=== PATIENT | male | born 1975 | race Caucasian/White ===

== ENCOUNTER 2019-08-21 11:35 | Emergency (ER) | payer OTHER ==
[2019-08-21] MEDS ORDERED: Ondansetron 4 MG/2 ML SDV IVPUSH ONE (12:54)
[2019-08-21] MEDS ORDERED: fentaNYL 100 MCG/2 ML SDV IVPUSH ONE (12:54)
--- NOTE | 2019-08-21 12:54 | EDM.PDOC ---
ED HPI GENERAL MEDICAL PROBLEM - General Chief Complaint: Abdominal Pain Stated Complaint: R SIDE ABD PAIN Time Seen by Provider: 08/21/19 12:46 - History of Present Illness INITIAL COMMENTS - FREE TEXT/NARRATIVE: 44-year-old male presents emergency room with right-sided abdominal pain. this pain started around 8:30 this morning. He's had a little bit of nausea with it no vomiting. The pain started out in his upper back and now is in his lower right abdomen radiating into his groin. Patient does not have history kidney stones he still has his appendix and gallbladder. He's not having fevers or chills. Right Abdominal Pain Score (Numeric/FACES): 8 - Related Data Allergies Allergy/AdvReac Type Severity Reaction Status Date / Time No Known Allergies Allergy Verified 08/21/19 11:47 Home Meds: Home Meds Acetaminophen/HYDROcodone [Gwinner 325-5 MG] 1 - 2 tab PO Q6H PRN #20 tablet 08/21 [Rx] Escitalopram [Lexapro] 20 mg PO BEDTIME 08/21/19 [History] Ondansetron [Zofran ODT] 4 - 8 mg PO Q6H PRN #12 tab.dis 08/21/19 [Rx] Tamsulosin HCl [Flomax] 0.4 mg PO Q24H #7 cap.er.24h 08/21/19 [Rx] Topiramate [Topamax] 200 mg PO BEDTIME 08/21/19 [History] Past Medical History - Past Health History Medical/Surgical History: Denies Medical/Surgical History Social & Family History - Tobacco Use Smoking Status *Q: Current Every Day Smoker Years of Tobacco use: 10 Packs/Tins Daily: 1 - Caffeine Use Caffeine Use: Reports: Coffee, Energy Drinks - Recreational Drug Use Recreational Drug Use: No ED ROS GENERAL - Review of Systems Review Of Systems: See Below Constitutional: Reports: No Symptoms HEENT: Reports: No Symptoms Respiratory: Reports: No Symptoms Cardiovascular: Reports: No Symptoms GI/Abdominal: Reports: Abdominal Pain, Nausea. Denies: Constipation, Diarrhea, Distension, Vomiting ED EXAM, GI/ABD - Physical Exam Exam: See Below Exam Limited By: No Limitations General Appearance: Alert, Moderate Distress (From the pain) Head: Atraumatic, Normocephalic Neck: Normal Inspection, Supple, Non-Tender, Full Range of Motion Respiratory/Chest: No Respiratory Distress, Lungs Clear, Normal Breath Sounds, No Accessory Muscle Use, Chest Non-Tender Cardiovascular: Normal Peripheral Pulses, Regular Rate, Rhythm, No Edema, No Gallop, No JVD, No Murmur, No Rub GI/Abdominal Exam: Normal Bowel Sounds, Soft, Tender (Some tenderness right side of his abdomen this is not worsened with palpation no rigidity no rebound no guarding). No: Non-Tender Back Exam: Normal Inspection. No: CVA Tenderness (L), CVA Tenderness (R) Neurological: Alert, Oriented, Normal Cognition Course - Vital Signs Last Recorded V/S: Last Vital Signs Temp 36.4 C 08/21/19 11:46 Pulse 48 L 08/21/19 11:46 Resp 15 08/21/19 11:46 BP 133/62 08/21/19 11:46 Pulse Ox 100 08/21/19 11:46 - Orders/Labs/Meds Orders: Active Orders 24 hr Category Date Time Status Lactated Ringers [Ringers, Lactated] 1,000 ml Med 08/21/19 13:00 Active IV ASDIRECTED Medication Orders Lactated Ringer's (Ringers, Lactated) 1,000 mls @ 125 mls/hr IV ASDIRECTED BEKAH Last Admin: 08/21/19 13:15 Dose: 125 mls/hr Labs: Laboratory Tests 08/21/19 08/21/19 08/21/19 Range/Units 12:05 12:05 14:25 WBC 14.88 H (4.23-9.07) K/mm3 RBC 4.64 (4.63-6.08) M/mm3 Hgb 14.1 (13.7-17.5) gm/dl Hct 42.7 (40.1-51.0) % MCV 92.0 (79.0-92.2) fl MCH 30.4 (25.7-32.2) pg MCHC 33.0 (32.2-35.5) g/dl RDW Std Deviation 45.4 H (35.1-43.9) fL Plt Count 189 (163-337) K/mm3 MPV 10.8 (9.4-12.3) fl Neutrophils % (Manual) 72 H (40-60) % Band Neutrophils % 0 (0-10) % Lymphocytes % (Manual) 19 L (20-40) % Atypical Lymphs % 0 % Monocytes % (Manual) 9 (2-10) % Eosinophils % (Manual) 0 L (0.8-7.0) % Basophils % (Manual) 0 L (0.2-1.2) Platelet Estimate Adequate RBC Morph Comment Normal Sodium 142 (136-145) mEq/L Potassium 3.7 (3.5-5.1) mEq/L Chloride 107 (98-107) mEq/L Carbon Dioxide 24 (21-32) mEq/L Anion Gap 14.7 (5-15) BUN 14 (7-18) mg/dL Creatinine 1.2 (0.7-1.3) mg/dL Est Cr Clr Drug Dosing 77.58 mL/min Estimated GFR (MDRD) > 60 (>60) mL/min BUN/Creatinine Ratio 11.7 L (14-18) Glucose 145 H (74-106) mg/dL Calcium 8.7 (8.5-10.1) mg/dL Total Bilirubin 0.4 (0.2-1.0) mg/dL AST 20 (15-37) U/L ALT 25 (16-63) U/L Alkaline Phosphatase 81 (46-116) U/L Total Protein 7.3 (6.4-8.2) g/dl Albumin 4.0 (3.4-5.0) g/dl Globulin 3.3 gm/dL Albumin/Globulin Ratio 1.2 (1-2) Urine Color Yellow (Yellow) Urine Appearance Cloudy H (Clear) Urine pH 7.5 (5.0-8.0) Ur Specific [place] 1.020 (1.005-1.030) Urine Protein 2+ H (Negative) Urine Glucose (UA) Negative (Negative) Urine Ketones Trace H (Negative) Urine Occult Blood 3+ H (Negative) Urine Nitrite Negative (Negative) Urine Bilirubin 1+ H (Negative) Urine Urobilinogen 1.0 (0.2-1.0) Ur Leukocyte Esterase Negative (Negative) Urine RBC >100 H (0-5) /hpf Urine WBC 0-5 (0-5) /hpf Ur Squamous Epith Cells 0-5 (0-5) /hpf Urine Bacteria Few (FEW) /hpf Urine Mucus Few (FEW) /hpf Meds: Medications Generic Name Dose Route Start Last Admin Trade Name Freq PRN Reason Stop Dose Admin Lactated Ringer's 1,000 mls @ 125 mls/hr 08/21/19 13:00 08/21/19 13:15 Ringers, Lactated IV 125 mls/hr ASDIRECTED BEKAH Administration Discontinued Medications Generic Name Dose Route Start Last Admin Trade Name Hussainq PRN Reason Stop Dose Admin Fentanyl 100 mcg 08/21/19 12:54 08/21/19 13:15 Sublimaze IVPUSH 08/21/19 12:55 100 mcg ONETIME ONE Administration Ondansetron HCl 4 mg 08/21/19 12:54 08/21/19 13:15 Zofran IVPUSH 08/21/19 12:55 4 mg ONETIME ONE Administration Tamsulosin HCl 0.4 mg 08/21/19 14:56 08/21/19 15:07 Flomax PO 08/21/19 14:57 0.4 mg ONETIME ONE Administration - Re-Assessments/Exams Free Text/Narrative Re-Assessment/Exam: 08/21/19 15:14 CT confirmed kidney stone on the right 3.6 mm stone in the proximal right ureter also noted was a proximal left ureter that looks to be obstructing as well at 4.8 mm this is a little more distal than on the right side. He has multiple nonobstructing stones within both kidneys. Case discussed with Dr. Rosario, urologist [place] in [place] who will see the patient in the office tomorrow at 1:30. With possible procedures to follow on Wednesday. Departure - Departure Time of Disposition: 15:16 Disposition: Home, Self-Care Clinical Impression: Renal calculus, bilateral, Renal colic on right side Clinical Impression: (Ruled Out): Renal colic, bilateral - Discharge Information Prescriptions: Acetaminophen/HYDROcodone [Gwinner 325-5 MG] 1 - 2 tab PO Q6H PRN #20 tablet PRN Reason: Abdominal Pain Ondansetron [Zofran ODT] 4 - 8 mg PO Q6H PRN #12 tab.dis PRN Reason: Nausea/Vomiting Tamsulosin HCl [Flomax] 0.4 mg PO Q24H #7 cap.er.24h Referrals: PCP,None [Primary Care Provider] - Forms: ED Department Discharge Additional Instructions: Return to the emergency room with any questions problems worsening symptoms. Return to the emergency room if you develop any fevers. Take the medications as directed and as we discussed. Follow-up with Dr. Rosario at the [facility] in [place] tomorrow at 1: 30 be there at 1 PM [facility]. Anticipate potential surgical intervention on Wednesday. - My Orders Last 24 Hours: My Active Orders 08/21/19 13:00 Lactated Ringers [Ringers, Lactated] 1,000 ml IV ASDIRECTED - Assessment/Plan Last 24 Hours: My Active Orders 08/21/19 13:00 Lactated Ringers [Ringers, Lactated] 1,000 ml IV ASDIRECTED
[2019-08-21] MEDS ORDERED: Lactated Ringers 1,000 ML IV SCH (13:00)
--- NOTE | 2019-08-21 13:58 | CT ---
CT abdomen and pelvis Technique: Multiple axial sections were obtained from above the dome of the diaphragm inferiorly through the pubic symphysis. Intravenous and oral contrast was not utilized. Study has been performed as a ureteral stone protocol. Comparison: No prior CT abdomen or pelvis exam. Findings: Obstructing stone is noted within the proximal right ureter which measures about 3.6 mm. Obstructing stone is also noted within the proximal left ureter measuring 4.8 mm. No other abnormal calcifications are seen along the course of the ureters. Multiple small nonobstructing calculi are noted within both kidneys. Mild hydronephrosis is seen which is caused by the obstructing bilateral calculi on both sides. Visualized lung bases show nothing acute. Noncontrast appearance of the liver and spleen appear within normal limits. Gallbladder contains no calcified gallstones. Adrenal glands show no nodule. Pancreas is within normal limits. Aorta shows no aneurysm. Appendix is seen which is normal in size. No retroperitoneal adenopathy or mesenteric abnormalities are seen. No pelvic mass or adenopathy is seen. No free fluid is noted. Bone window settings were reviewed which show no acute osseous finding. Impression: 1. Bilateral obstructing ureteral stones within the proximal ureters as noted above. Nonobstructing calculi within both kidneys. 2. No other acute finding is seen on noncontrast CT study of the abdomen and pelvis. Diagnostic code #3
[2019-08-21] MEDS ORDERED: Tamsulosin 0.4 MG Cap.ER PO ONE (14:56)
== END 2019-08-21 15:49 | disposition home or self-care (01) ==
LOC: JD.ED 11:35 → EDBD 11:35 → JD.ED 15:49
DX: N20.0 Calculus of kidney (principal); F17.210 Nicotine dependence, cigarettes, uncomplicated
CPT/HCPCS: 36415; 74176; 80053; 81001; 85007; 85027; 96361; 96374; 96375; 99284; A9270; J2405; J3010; J7120

== ENCOUNTER 2023-07-21 11:55 | Day surgery (SDC) | payer OTHER ==
[~2023-07-21 11:55] MED LIST: Lactated Ringers 1,000 ML IV SCH; Sodium Chloride 0.9% 10 ML Syringe FLUSH PRN; Sodium Chloride 0.9% 10 ML Syringe FLUSH SCH
[2023-07-21] MEDS ORDERED: ceFAZolin 2 GM Vial ONE (12:39)
[2023-07-21] MEDS ORDERED: Acetaminophen 325 MG Tab PO ONE (12:40)
[2023-07-21] MEDS ORDERED: fentaNYL 250 MCG/5 ML SDV ONE (12:41)
[2023-07-21] MEDS ORDERED: Propofol 200 MG/20 ML SDV ONE (12:42)
[2023-07-21] MEDS ORDERED: Midazolam 1 MG/ML 2 ML SDV ONE (12:45)
[2023-07-21] MEDS ORDERED: Pantoprazole 40 MG Tab.CR PO ONE (13:00)
[2023-07-21] MEDS ORDERED: EPINEPHrine 1 MG/ML SDV ONE ×2 (13:54→15:29)
[2023-07-21] MEDS ORDERED: Lidocaine 1% 30 ML SDV ONE ×2 (13:55→15:29)
[2023-07-21] MEDS ORDERED: Bupivacaine 0.5% 30 ML SDV ONE ×2 (13:55→15:29)
[2023-07-21] MEDS ORDERED: fentaNYL 100 MCG/2 ML SDV IVPUSH PRN (14:00)
[2023-07-21] MEDS ORDERED: HYDROmorphone 0.5 MG/0.5 ML Syringe IVPUSH PRN (14:00)
[2023-07-21] MEDS ORDERED: Naloxone 0.4 MG/ML SDV IVPUSH PRN (14:00)
[2023-07-21] MEDS ORDERED: Ondansetron 4 MG/2 ML SDV IVPUSH PRN (14:00)
[2023-07-21] MEDS ORDERED: HYDROmorphone 0.5 MG/0.5 ML Syringe ONE (14:42)
[2023-07-21] MEDS ORDERED: Sugammadex Sodium 200 MG/2 ML VIAL ONE (15:27)
[2023-07-21] MEDS ORDERED: Ondansetron 4 MG/2 ML SDV ONE (15:30)
[2023-07-21] MEDS ORDERED: Rocuronium 50 MG/5 ML Vial ONE (15:30)
[2023-07-21] MEDS ORDERED: Ketorolac 30 MG/ML SDV ONE (15:30)
[2023-07-21] MEDS ORDERED: ePHEDrine 50 MG/ML SDV ONE (15:45)
[2023-07-21] MEDS ORDERED: Neostigmine Methylsulfate 10 MG/10 ML MDV ONE (16:00)
[2023-07-21] MEDS ORDERED: Lactated Ringers 1,000 ML IV ONE (16:30)
== END 2023-07-21 18:50 | disposition home or self-care (01) ==
LOC: JD.SDS 11:55
PROVIDERS: ATTEND Surgery
DX: K42.0 Umbilical hernia with obstruction, without gangrene (principal); K21.9 Gastro-esophageal reflux disease without esophagitis; F41.9 Anxiety disorder, unspecified; Z87.891 Personal history of nicotine dependence; Z79.899 Other long term (current) drug therapy
CPT/HCPCS: 49592; A9270; J0171; J0690; J1170; J2250; J2704; J3010; J3490; J7120; J1885; J2405; J2710